=== PATIENT | female | born 1985 | race Caucasian/White ===

== ENCOUNTER 2016-05-24 20:13 | Emergency (ER) | payer OTHER ==
[~2016-05-24] VITALS: Ht 152.4 cm; Wt 62.4 kg
[~2016-05-24 20:13] MED LIST: PROMETHAZINE HC25 M1 PO; ZOFRAN4 MG PO
[2016-05-24 21:02] LABS: HEMATOCRIT 38.6 % (36.0-46.0); MCH 29.2 PG (29.0-34.0); MCHC 33.9 G/DL (30.0-36.0); MEAN PLAT.VOLUME 9.1 uM^3 (9.5-12.4); PLATELET COUNT 368 K/uL (156-360); RBC DIS.WIDTH-CV 12.2 % (11.8-14.6); RBC DIS.WIDTH-SD 38.8 % (39-53); RED BLOOD COUNT 4.49 M/uL (3.80-5.20); WHITE BLOOD COUNT 6.8 K/uL (4.1-10.2)
[2016-05-24 21:10] LABS: CHLORIDE 106 mEq/L (99-109); POTASSIUM 3.8 mEq/L (3.7-5.4); SODIUM 141 mEq/L (136-147)
[2016-05-24 21:11] LABS: GLUCOSE 79 mg/dL (70-99)
[2016-05-24 21:13] LABS: ANION GAP 13 MEQ/L (2-14)
[2016-05-24 21:15] LABS: GFR ESTIMATE (CALCULATED) > 59 mL/min/
[2016-05-24 21:16] LABS: UREA NITROGEN (BUN) 10 mg/dL (9-23)
[2016-05-24 21:25] LABS: QUANTITATIVE HCG < 4.0 MIU/ML
[2016-05-24 22:15] LABS: ADD MIUA? YES; BILIRUBIN NEGATIVE; BLOOD SMALL; COLOR YELLOW ((YELLOW)); GLUCOSE (STRIP) NEGATIVE; KETONES NEGATIVE; LEUKOCYTES NEGATIVE; NITRITE NEGATIVE; PROTEIN (STRIP) 30; SPECIFIC GRAVITY 1.021 (1.000-1.030); UROBILINOGEN 0.2 MG/DL (0.2-1.0)
[2016-05-24] MEDS ORDERED: DELTASONE20 M1 PO (22:26)
[2016-05-24] MEDS ORDERED: PERCOCET 5/31 TABLET PO (22:26)
[2016-05-24 22:28] LABS: BACTERIA RARE /HPF; EPITHELIAL CELLS 1+ /HPF; MUCUS 1+ /LPF; RED BLOOD CELLS NONE SEEN /HPF (0-5); UCUL ADDED? NO; WHITE BLOOD CELLS NONE SEEN /HPF (0-5)
[2016-05-24 23:08] VITALS: BP 106/67
== END 2016-05-24 23:13 | disposition home or self-care (01) ==
LOC: EXP 20:13 → EME 20:13 → EXP 23:13
PROVIDERS: Physician Assistant
DX: M54.40 Lumbago with sciatica, unspecified side (principal); N76.0 Acute vaginitis; J45.909 Unspecified asthma, uncomplicated; F17.200 Nicotine dependence, unspecified, uncomplicated
CPT/HCPCS: 72100; 80048; 81003; 84702; 85027; 99281; 99284; J1885; J7512